=== PATIENT | female | born 1955 | race Caucasian/White ===

== ENCOUNTER 2017-04-16 14:06 | Emergency (ER) | payer BC ==
--- NOTE | 2017-04-16 14:34 | UC ---
Respiratory Complaint HPI - HPI Summary HPI Summary: 62 y/o female presents to the urgent care c/o persistent cough for the past week. Pt states she has Hx of seasonal allergies. But usually her symptoms presents in December. However this year, her symptoms just started now. Nasal congestion w/ clear nasal drainage. She has been taking Zyrtec and has been doing the nasal flush. But her cough is been persistent and dry. Pt denies fever, SOB, chest pain, N/V/D, dizziness, PHILIP, visual disturbances Pt states she has been Dx w/ HTN in the past,w/diet control. Whe she is told her BP is very elevated , she states she hasn't seen her PCP in the past year since she no longer wants to continue with her. Pt has not other complains - History of Current Complaint Chief Complaint: UCRespiratory Stated Complaint: COUGH Time Seen by Provider: 04/16/17 14:33 Hx Obtained From: Patient ?: No Onset/Duration: Gradual Onset, Lasting Days, Still Present Timing: Constant Severity Initially: Mild Severity Currently: Moderate Pain Intensity: 0 Pain Scale Used: 0-10 Numeric Character: Cough: Nonproductive Aggravating Factors: Allergens Alleviating Factors: OTC Meds Associated Signs And Symptoms: Positive: Nasal Congestion. Negative: Dyspnea, Fever Related History: Seasonal Allergies - Risk Factors Pulmonary Embolism Risk Factors: Negative Cardiac Risk Factors: Negative Pseudomonas Risk Factors: Negative Tuberculosis Risk Factors: Negative - Allergies/Home Medications Allergies/Adverse Reactions: Allergies Allergy/AdvReac Type Severity Reaction Status Date / Time No Known Allergies Allergy Verified 04/16/17 14:30 Home Medications: Home Medications Loratadine [Claritin 10 MG CAP] 1 cap DAILY 04/16/17 [History Confirmed 04/16/17 ] PMH/Surg Hx/FS Hx/Imm Hx Previously Healthy: Yes Cardiovascular History: Hypertension Other Respiratory History: seasonal allergies - Surgical History Surgical History: Yes Surgery Procedure, Year, and Place: TUBAL LIGATION. CARPAL TUNNEL R HAND - Family History Known Family History: Positive: Diabetes - Social History Occupation: Unemployed Lives: With Family Alcohol Use: Rare Substance Use Type: None Smoking Status (MU): Never Smoked Tobacco Have You Smoked in the Last Year: No - Immunization History Most Recent Influenza Vaccination: August 2015 Review of Systems Constitutional: Negative Skin: Negative Eyes: Negative ENT: Nasal Discharge - cleear, Sinus Congestion Respiratory: Cough - nonproductive Cardiovascular: Negative Gastrointestinal: Negative Genitourinary: Negative Motor: Negative Neurovascular: Negative Musculoskeletal: Negative Neurological: Negative Psychological: Negative All Other Systems Reviewed And Are Negative: Yes Physical Exam Triage Information Reviewed: Yes Appearance: Well-Appearing, No Pain Distress, Well-Nourished, Obese Vital Signs Reviewed: Yes Eye Exam: Normal Eyes: Positive: Conjunctiva Clear - PERRLS. EOMI, fundi grossly normal ENT: Positive: Normal ENT inspection, Hearing grossly normal, Pharynx normal - w / clear postnasal drip, Nasal congestion - edematous nasal mucosa w/ clear nasal discharge, Nasal drainage - clear, TMs normal Dental Exam: Normal Neck exam: Normal Neck: Positive: Supple, Nontender, No Lymphadenopathy Respiratory Exam: Normal Respiratory: Positive: Chest non-tender, Lungs clear, Normal breath sounds Cardiovascular Exam: Normal Cardiovascular: Positive: RRR, No Murmur, Pulses Normal Abdominal Exam: Normal Abdomen Description: Positive: No Organomegaly, Soft. Negative: CVA Tenderness (R), CVA Tenderness (L) Bowel Sounds: Positive: Present Musculoskeletal Exam: Normal Musculoskeletal: Positive: Strength Intact, ROM Intact, No Edema Neurological Exam: Normal Psychological Exam: Normal Skin Exam: Normal Respiratory Course/Dx - Course Course Of Treatment: 62 y/o female presents to the urgent care c/o persistent cough for the past week. Pt states she has Hx of seasonal allergies. But usually her symptoms presents in December. However this year, her symptoms just started now. Nasal congestion w/ clear nasal drainage. She has been taking Zyrtec and has been doing the nasal flush. But her cough is been persistent and dry. Pt denies fever, SOB, chest pain, N/V/D, dizziness, PHILIP, visual disturbances Pt states she has been Dx w/ HTN in the past,w/diet control. Whe she is told her BP is very elevated , she states she hasn't seen her PCP in the past year since she no longer wants to continue with her. HX obtained. Pt Rx Tessalon tabs PO to alleviate her cough. Advised to continue w/ the claritine PO and the flonase nasal spray she has at home for her rhinosinusitis. Pt BP: 190/115. Pt w/ uncontrolled HTN, not taking any medication for the past year since not seen her PCP since then. Pt given the [facility] referral center line to make an appt w/ a PCP as soon as posiibel for further management on her BP. Adivsed to decrese salt in her diet.Educated in the risks of uncontrolled HTn. Advised if she develops chest pain, visual disturbance of SOB to go immediately to the ER. Pt understood and agreed and left the clinic ambulating. A&OX3 - Differential Dx/Diagnosis Differential Diagnosis/HQI/PQRI: Bronchitis, Laryngitis, Sinusitis, Other - pharyngitis, URI, allergic rhinitis Provider Diagnoses: 1-Allergic rhinitis. 2-Uncontrolled HTN Discharge - Discharge Plan Condition: Stable Disposition: HOME Prescriptions: Benzonatate CAP* [Tessalon 100 MG CAP*] 100 mg PO TID #21 cap Patient Education Materials: Allergic Rhinitis (ED), DASH Eating Plan (ED), Low Sodium Diet (ED) Referrals: Dina Jones MD [Medical Doctor] - [facility] PHYSICIAN REFERRAL [Outside] - If Needed Additional Instructions: 1-Please continue taking the Claritin PO and start using the Flonase nasal spray. Take the Tessalon Tabs PO to alleviate symptoms of cough. Increse fluid intake and continue with the nasal wash. 2- Your BP is elevated today please f/u with your PCP as soon as possible for further treatment. Decrease salt in your diet. If you develop SOB, chest pain, dizziness or visual disturbances please go immediately to the ER.
[2017-04-16 14:57] VITALS: BP 189/115
== END 2017-04-16 15:19 | disposition home or self-care (01) ==
LOC: UCCORT 14:06
DX: J30.9 Allergic rhinitis, unspecified (principal); I10 Essential (primary) hypertension
CPT/HCPCS: 99212; G0463

== ENCOUNTER 2019-12-02 05:44 | Emergency (ER) | payer BC ==
--- NOTE | 2019-12-02 06:42 | ED ---
Abdominal Pain/Female - HPI Summary HPI Summary: Pt. is a 64 y.o female who presents to the ER for lower abd. pain cramping and blood in stool that started yesterday. Pt. notes nausea and decreased appetite. No significant past medical hx. Pt. notes loose stool with bright red blood. Colonoscopy a few years ago and normal per pt. Denies abd. surgeries. Sxs are moderate in severity. No current modifying factors. Denies cough, fever, cp, SOB , syncope. - History of Current Complaint Chief Complaint: EDGIBleed Stated Complaint: RECTAL BLEED PER PT Time Seen by Provider: 12/02/19 06:41 Hx Obtained From: Patient Pain Intensity: 4 Allergies/Adverse Reactions: Allergies Allergy/AdvReac Type Severity Reaction Status Date / Time No Known Allergies Allergy Verified 12/02/19 05:51 Home Medications: Home Medications Benzonatate CAP* [Tessalon 100 MG CAP*] 100 mg PO TID #21 cap 04/16/17 [Rx] Loratadine [Claritin 10 MG CAP] 1 cap DAILY 04/16/17 [History Confirmed 04/16/17 ] Dicyclomine CAP* [Bentyl CAP*] 10 mg PO TID PRN #12 cap 12/02/19 [Rx] traMADol TAB* [Ultram*] 50 mg PO Q6HR PRN #12 tab MDD 4 12/02/19 [Rx] PMH/Surg Hx/FS Hx/Imm Hx Previously Healthy: Yes Endocrine/Hematology History: Denies: Hx Diabetes Cardiovascular History: Reports: Hx Hypertension Respiratory History: Denies: Hx Asthma History: Comment Only: Hx Renal Disease - compromised eGFR - Surgical History Surgery Procedure, Year, and Place: TUBAL LIGATION. CARPAL TUNNEL R HAND Infectious Disease History: No Infectious Disease History: Denies: Hx Clostridium Difficile, Hx Hepatitis, Hx Human Immunodeficiency Virus (HIV), Hx Shingles, Hx Tuberculosis, Traveled Outside the [place] in Last 30 Days - Family History Known Family History: Positive: None, Diabetes, Non-Contributory - Social History Occupation: Retired Lives: With Family Alcohol Use: Rare Substance Use Type: Reports: None Smoking Status (MU): Never Smoked Tobacco Have You Smoked in the Last Year: No Review of Systems Constitutional: Negative Negative: Fever, Chills Cardiovascular: Negative Negative: Chest Pain Respiratory: Negative Negative: Shortness Of Breath Positive: Abdominal Pain, Nausea, Other - blood in stool Genitourinary: Negative Neurological/Mental Status: Negative All Other Systems Reviewed And Are Negative: Yes Physical Exam Triage Information Reviewed: Yes Vital Signs On Initial Exam: Initial Vitals Temp Pulse Resp BP Pulse Ox 98.1 F 100 16 144/79 97 12/02/19 05:45 12/02/19 05:45 12/02/19 05:45 12/02/19 05:45 12/02/19 05:45 Vital Signs Reviewed: Yes Appearance: Positive: Well-Appearing - Pt. sitting up in bed in NAD. Pleasant. Skin: Positive: Warm, Skin Color Reflects Adequate Perfusion, Dry Head/Face: Positive: Normal Head/Face Inspection Eyes: Positive: Normal, EOMI Neck: Positive: Supple Respiratory/Lung Sounds: Positive: Clear to Auscultation, Breath Sounds Present Cardiovascular: Positive: Normal, RRR Abdomen Description: Positive: Other: - Obese. Abd. is soft with mild tenderness to LLQ and suprapubic region. No rebound tenderness or guarding. Rectal exam performed with ER aid. External exam unremarkable. CHRISTINA shows a small amount of bright red blood. No gross bleeding. Neurological: Positive: Normal, CN Intact II-III Psychiatric: Positive: Affect/Mood Appropriate Procedures - Sedation Patient Received Moderate/Deep Sedation with Procedure: No Diagnostics - Vital Signs Vital Signs Temp Pulse Resp BP Pulse Ox 12/02/19 05:45 98.1 F 100 16 144/79 97 - Laboratory Result Diagrams: 12/02/19 07:40 12/02/19 07:40 Lab Statement: Any lab studies that have been ordered have been reviewed, and results considered in the medical decision making process. Abdominal Pain Fem Course/Dx - Course Course Of Treatment: Pt. with lower abd. pain and BRB in stool. Afebrile with stable VS. Nontoxic appearing. Will obtain labs and CT. Labs show Stable H and H. Mildly elevated cr. Rectal exam showed small amount of BRB on CHRISTINA. CT per radiology: IMPRESSION: Diffuse wall thickening of the descending colon extending from the splenic. flexure to the junction of the sigmoid colon with some mild pericolonic infiltration of. fat. Findings are suggestive of colitis. There is a macroscopic fat-containing lesion in the upper pole of the right kidney. measuring up to 1.8 x 2.1 cm which is slightly larger than on 2017. This is consistent. with angiomyolipoma and further follow-up should BE considered. Pt. unable to provide stool sample. No blood passed in ED. Case discussed with Dr. Guevara. Will not treat with antibiotics at this time given afebrile and normal WBC. Pt. requesting pain control. Will try bentyl and ultram. Pt. comfortable with dc home. Will f.u [facility]th pcp and gi on wednesday if sxs persist. To return to er for increased bleeding, fever, increased pain or if concerned. Pt. understands and agrees with plan. - Diagnoses Differential Diagnosis: Positive: Appendicitis, Bowel Obstruction, Constipation , Diverticulitis Provider Diagnoses: Colitis Discharge ED - Sign-Out/Discharge Documenting (check all that apply): Patient Departure - Discharge Plan Condition: Good Disposition: HOME Prescriptions: Dicyclomine CAP* [Bentyl CAP*] 10 mg PO TID PRN #12 cap PRN Reason: Pain - Mild traMADol TAB* [Ultram*] 50 mg PO Q6HR PRN #12 tab MDD 4 PRN Reason: Pain - Moderate Patient Education Materials: Colitis (ED) Referrals: Zari Whitten PA [Primary Care Provider] - Lizabeth Martinez MD [Medical Doctor] - Additional Instructions: Schedule a follow up appointment with your PCP and GI within 2-3 days if symptoms persist Increase fluids Medication as directed Clear liquid/soft diet x 48-72 hours Return to ER for increased pain, fever, increased bleeding, or if concerned - Billing Disposition and Condition Condition: GOOD Disposition: Home - Attestation Statements Provider Attestation: I was available for consultation for this patient. I did not evaluate the patient or participate in any medical decision making or disposition decisions unless I am specifically named in the chart as having consulted on the patient. If I have consulted on the patient, please see my own ED note on the patient encounter. Sarabjit Guevara MD
[2019-12-02 07:49] LABS: Eosinophil % 0.1 %; Hematocrit 42 % (35-47); Hemoglobin 14.7 g/dL (12.0-16.0); Lymphocyte % 10.1 %; Mean Corpuscular HGB Conc 35 g/dL (31-36); Mean Corpuscular Hemoglobin 30 pg (27-31); Mean Corpuscular Volume 87 fL (80-97); Platelet Count 186 10^3/uL (150-450); Red Blood Count 4.86 10^6 /uL (3.70-4.87); Red Cell Distribution Width 14 % (10-15); White Blood Count 10.1 10^3/uL (3.5-10.8)
[2019-12-02 07:57] LABS: Activated Partial Thrombo Time 32.1 seconds (26.0-38.0); INR 1.1 (0.82-1.09)
[2019-12-02 08:10] LABS: Albumin 4.1 g/dL (3.2-5.2); Albumin/Globulin Ratio 1.6 (1-3); BUN/Creatinine Ratio 17.9 (8-20); EGFR African American 59.3 (>60); Globulin 2.6 g/dL (2-4); Potassium 3.9 mmol/L (3.5-5.0); Total Bilirubin 0.5 mg/dL (0.2-1.0); Total Protein 6.7 g/dL (6.4-8.9)
[2019-12-02] MEDS ORDERED: Iodixanol* (CONTRAST) 320 MG/ML 100 ML SDV IV ONE (08:12)
[2019-12-02] MEDS ORDERED: Dicyclomine CAP* 10 MG PO ONE (09:22)
[2019-12-02 09:53] VITALS: BP 135/78
== END 2019-12-02 09:52 | disposition home or self-care (01) ==
LOC: ED 05:44
DX: K52.9 Noninfective gastroenteritis and colitis, unspecified (principal); R10.9 Unspecified abdominal pain; R11.0 Nausea; Z98.51 Tubal ligation status
CPT/HCPCS: 36415; 74177; 80053; 82272; 85025; 85610; 85730; 99283; A9270-GY; Q9967